=== PATIENT | female | born 1965 | race Caucasian/White ===

== ENCOUNTER 2021-12-22 15:53 | Emergency (ER) | payer BC, SELFPAY ==
--- NOTE | 2021-12-22 15:57 | ED.URI ---
HPI - URI/Sore Throat General Chief Complaint: Upper Respiratory Infection Stated Complaint: Sore Throat Time Seen by Provider: 12/22/21 15:58 Source: patient and RN notes reviewed History of Present Illness HPI Narrative: patient is a 56-year-old female who presents to the Urgent Care with complaints of sore throat and white spots this morning . Patient states that she had a low-grade temperature on which has since resolved. Patient denies any headache, nausea, vomiting. States that she has been taking ibuprofen. No other acute complaints. No acute distress noted. Patient aware of the of care. Some parts of this dictation were generated by voice recognition software and may contain typographical and/or grammatical inaccuracies. Related Data Allergies Allergy/AdvReac Type Severity Reaction Status Date / Time No Known Allergies Allergy Unverified 11/19/15 14:20 Review of Systems Review of Systems: CONSTITUTIONAL: Denies fever, chills, or sweats. EYES: Denies visual changes, redness, or discharge. ENT: Denies rhinorrhea, congestion, Otalgia. Reports of sore throat CARDIOVASCULAR: Denies chest pain, palpitations, or edema. RESPIRATORY: Denies cough or dyspnea. GASTROINTESTINAL: Denies abdominal pain, nausea, vomiting, or diarrhea. GENITOURINARY: Denies dysuria or hematuria. SKIN: Denies rash or itching. MUSCULOSKELETAL: Denies back pain, joint pain, or myalgia. NEUROLOGIC: Denies headache, numbness, or weakness. All other systems reviewed are negative, except as documented in HPI. PMFSH Comments At the time of my signature, I reviewed and agree with the nursing past medical, surgical, social, and family history. There is no relevant family history pertinent to the patient complaint. Exam Narrative: GENERAL: This is a well-nourished, well-developed patient, in no apparent distress. HEAD: normocephalic, atraumatic. EYES: PERRL. Sclera clear/white. Vision is grossly intact. EARS: External ears normal, auditory canals clear and without drainage, TMs normal without perforation. Hearing grossly intact. NOSE: External nose normal with no obvious nasal discharge, nares without redness, no rhinorrhea. THROAT: Mucous membranes moist, mild erythema in the posterior pharynx without exudate or ulceration. NECK: Neck supple, non-tender mild bilateral submandibularlymphadenopathy CARDIOVASCULAR: Regular rate and rhythm without murmurs, gallops, or rubs. RESPIRATORY: Clear to auscultation. Breath sounds equal bilaterally. No wheezes, rales, or rhonchi. SKIN: warm, intact with no suspicious lesions or rash, good texture and turgor. NEURO: awake, alert, and oriented to person, place and time. There were no obvious focal neurologic abnormalities. EXTREMITIES: No clubbing, cyanosis, or edema. Course Course Level of Care: Express Care Visit Vital Signs Vital signs: Vital Signs Temperature 97.4 F L 12/22/21 16:00 Pulse Rate 77 12/22/21 16:00 Respiratory Rate 16 12/22/21 16:00 Blood Pressure 149/78 H 12/22/21 16:00 Pulse Oximetry 100 12/22/21 16:00 Oxygen Delivery Room Air 12/22/21 16:00 Temperature 97.4 F L 12/22/21 16:00 Pulse Rate 77 12/22/21 16:00 Respiratory Rate 16 12/22/21 16:00 Blood Pressure 149/78 H 12/22/21 16:00 Pulse Oximetry 100 12/22/21 16:00 Oxygen Delivery Room Air 12/22/21 16:00 Reviewed- Patient is informed that they may have pre-hypertension or hypertension based on a blood pressure reading in the department. I recommend the patient call the primary care provider listed on their discharge instructions or a physician of their choice this week to arrange follow-up for further evaluation of possible pre-hypertension or hypertension. MDM - URI/Sore Throat MDM Narrative Medical decision making narrative: reviewed lab results with the patient. She is aware that strep swab Was positive. Advised patient to complete the oral antibiotic regimen as prescribed.
[2021-12-22 16:00] VITALS: BP 149/78; PULSE 77; RESP 16; TEMP 36.3; O2SAT 100
== END 2021-12-22 16:44 | disposition home or self-care (01) ==
PROVIDERS: Emergency Provider Nurse Practitioner Family
DX: J02.0 Streptococcal pharyngitis (principal)
CPT/HCPCS: 87880; 99203; G0463

== ENCOUNTER 2022-02-10 08:48 | Emergency (ER) | payer BC, SELFPAY ==
[2022-02-10 09:11] VITALS: BP 105/79; PULSE 85; RESP 16; TEMP 36.1; O2SAT 99
--- NOTE | 2022-02-10 09:19 | ED.URI ---
HPI - URI/Sore Throat General Chief Complaint: Upper Respiratory Infection Stated Complaint: cold flu Time Seen by Provider: 02/10/22 09:20 Source: patient and RN notes reviewed Mode of arrival: ambulatory Limitations: no limitations History of Present Illness HPI Narrative: 56 y/o female presented for c/o intermittent cough, sinus congestion and pressure, and sore throat for 3 weeks. States some days she feels better and thinks symptoms are resolved. Denies sob, wheezing, n/v/d/f/c. Taking ibuprofen sudafed nyquil for symptoms. Endorses sick contacts. MD elicited complaint: cough Related Data Home Medications Medication Instructions Recorded Confirmed No Home Medications 02/10/22 02/10/22 Allergies Allergy/AdvReac Type Severity Reaction Status Date / Time No Known Allergies Allergy Verified 02/10/22 09:34 Review of Systems Review of Systems: per HPI Exam Narrative: GENERAL: Ill-appearing, nontoxic EYES: PERRLA, conjunctivae clear ENT: Mucous membranes moist. TM pearly dewitt with dull light reflex bilaterally; no tragal tenderness. CHEST: Clear to auscultation, breath sounds equal. No wheezing, rhonchi, rales, or stridor. No respiratory distress, speaks in full sentences. HEART: Regular rate and rhythm. No murmur heard. SKIN: Warm, dry, no rash. NEURO: Alert and oriented x3. PSYCH: Normal mood and affect Course Course Emergency Course: Patient is aware of diagnosis, understands and agrees to treatment plan. Anticipatory guidance given. Patient agrees to follow-up as directed and is aware of reasons to seek care at the emergency department. Portions of this record may have been created with voice recognition software Level of Care: Express Care Visit Vital Signs Vital signs: Vital Signs Temperature 97.0 F L 02/10/22 09:11 Pulse Rate 85 02/10/22 09:11 Respiratory Rate 16 02/10/22 09:11 Blood Pressure 105/79 02/10/22 09:11 Pulse Oximetry 99 02/10/22 09:11 Oxygen Delivery Room Air 02/10/22 09:11 Temperature 97.0 F L 02/10/22 09:11 Pulse Rate 85 02/10/22 09:11 Respiratory Rate 16 02/10/22 09:11 Blood Pressure 105/79 02/10/22 09:11 Pulse Oximetry 99 02/10/22 09:11 Oxygen Delivery Room Air 02/10/22 09:11 reviewed MDM - URI/Sore Throat MDM Narrative Medical decision making narrative: Advised supportive measures and signs/symptoms to go to the ER. Pt is appropriate for outpt treatment and f/u. Differential Diagnosis Differential diagnosis: Likely upper respiratory infection, sinusitis and viral infection Discharge Plan Discharge Clinical Impression: Upper respiratory infection Patient Disposition: Home, Self-Care Condition: Stable Instructions: Antibiotic Form, Rhinosinusitis (ED) Additional Instructions: Recommend Flonase spray and Zyrtec (or Claritin/Lorena) over the counter Cough syrup may cause drowsiness; avoid driving or take it at night time. Tylenol 1000mg every 8 hours as needed for pain Symptomatic treatment includes: rest, fluids, and increase humidity of the air at home. Follow up with your primary care provider in 1 week. Go to the ER for worsening symptoms or concerns. Prescriptions: New doxycycline hyclate 100 mg tablet 100 mg PO BID 5 Days Qty: 10 0RF No Action No Home Medications Follow-up/Referrals: PHYSICIAN,PAINTER PLATE [Primary Care Provider] - Time of Disposition: 09:34
== END 2022-02-10 09:35 | disposition home or self-care (01) ==
PROVIDERS: Emergency Provider Nurse Practitioner Family
DX: J06.9 Acute upper respiratory infection, unspecified (principal)
CPT/HCPCS: 99213; G0463